=== PATIENT | male | born 1945 | race Two or more races ===

== ENCOUNTER 2017-11-03 17:23 | Emergency (ER) | payer MEDICARE ==
[~2017-11-03] VITALS: Ht 170.2 cm; Wt 78.5 kg
--- NOTE | 2017-11-03 17:44 | NUR ---
Patient is resting comfortably on gurney while reading the newspaper, LUIS MIGUEL, pending MD evaluation
[2017-11-03] MEDS ORDERED: LEVE500T9 PO (17:46)
[2017-11-03] MEDS ORDERED: RANI150T43 PO (17:46)
[2017-11-03] MEDS ORDERED: TICA90TA PO (17:46)
[2017-11-03] MEDS ORDERED: LOSA25TA13 PO (17:46)
[2017-11-03] MEDS ORDERED: METO-356 PO (17:46)
[2017-11-03] MEDS ORDERED: ASPI-618 PO (17:46)
[2017-11-03 18:41] LABS: BASOPHILS % (AUTO) 0.6 % (0.0-2.0); EOSINOPHILS # (AUTO) 0.1 K/uL (0.0-0.7); EOSINOPHILS % (AUTO) 2.1 % (0.0-7.0); HEMATOCRIT 36.8 % (36.7-47.1); HEMOGLOBIN 12.5 g/dL (12.5-16.3); LYMPHOCYTES # (AUTO) 1.3 K/uL (20.0-40.0); LYMPHOCYTES % (AUTO) 19.2 % (20.5-51.5); MEAN CORPUSCULAR HEMOGLOBIN 30.5 uug (23.8-33.4); MEAN CORPUSCULAR HGB CONC 34 g/dL (32.5-36.3); MEAN CORPUSCULAR VOLUME 90.3 fL (73.0-96.2); MONOCYTES # (AUTO) 0.8 K/uL (2.0-10.0); MONOCYTES % (AUTO) 11.3 % (0.0-11.0); NEUTROPHILS # (AUTO) 4.7 K/uL (1.8-8.9); NEUTROPHILS % (AUTO) 66.8 % (38.5-71.5); PLATELET COUNT (AUTO) 222 K/uL (152-348); RED BLOOD CELL COUNT(AUTO) 4.08 MIL/uL (4.06-5.63)
[2017-11-03 18:45] LABS: CARBON DIOXIDE 28 mmol/L (21-32); CHLORIDE 100 mmol/L (98-107); GLUCOSE 99 mg/dL (74-106); POTASSIUM 4.3 mmol/L (3.5-5.1); UREA NITROGEN, BLOOD 15 mg/dL (7-18)
[2017-11-03 18:50] LABS: ALANINE AMINOTRANSFERASE 28 U/L (16-63); ALKALINE PHOSPHATASE 271 U/L (50-136); ASPARTATE AMINOTRANSFERASE 22 U/L (15-37); BILIRUBIN,DIRECT 0.2 mg/dL (0.0-0.2); BILIRUBIN,TOTAL 0.8 mg/dL (0.2-1.0); TOTAL PROTEIN, SERUM 7.3 g/dL (6.4-8.2)
--- NOTE | 2017-11-03 19:19 | NUR ---
Assumed care of patient. patient in bed, no acute distress noted. family at bedside. Returned from CT.
--- NOTE | 2017-11-03 19:32 | NUR ---
Patient discharged to home in stable conditon. Written and verbal after care instructions given. Patient verbalizes understanding of instructions. Ambulated from ER with stable gait. patient is accompanied by , and will be driven home in private vehicle All belongings taken with patient.
[2017-11-03 19:35] VITALS: BP 131/74
== END 2017-11-03 19:40 | disposition home or self-care (01) ==
LOC: ER 17:26
DX: S42.202A Unspecified fracture of upper end of left humerus, initial encounter for closed fracture (principal); I10 Essential (primary) hypertension; Z95.0 Presence of cardiac pacemaker; Z79.82 Long term (current) use of aspirin; Z79.899 Other long term (current) drug therapy; X58.XXXA Exposure to other specified factors, initial encounter; Y93.89 Activity, other specified; Y92.89 Other specified places as the place of occurrence of the external cause; Y99.8 Other external cause status
CPT/HCPCS: 36415; 70030-TC; 71045; 73200; 85025; 85730; 93005; A4663

== ENCOUNTER 2023-01-14 21:33 | Emergency (ER) | payer MEDICARE ==
[~2023-01-14] VITALS: Ht 167.6 cm; Wt 79.4 kg
[~2023-01-14 21:33] MED LIST: ASPI-618 PO; LEVE500T9 PO; LOSA25TA27 PO; METO-356 PO; RANI-655 PO; TICA90TA PO
[2023-01-14] MEDS ORDERED: PROPOFOL 0 ML ONE (21:52)
--- NOTE | 2023-01-14 23:05 | NUR ---
PT AMB TO RM 4A WITH AT BEDSIDE.
[2023-01-15] MEDS ORDERED: VANCOMYCIN IV 1,000 MG in IV DEXTROSE 5% 250 ML IV ONE (00:15)
[2023-01-15] MEDS ORDERED: SULFAMETH/TRIMETH 800/160 MG TABLET PO ONE (00:15)
[2023-01-15] MEDS ORDERED: VANCOMYCIN IV 200 ML ONE (00:19)
[2023-01-15] MEDS ORDERED: SULFAMETH/TRIMETH 800/160 MG TABLET ONE (00:19)
--- NOTE | 2023-01-15 00:20 | NUR ---
AT BEDSIDE FOR EVAL.
[2023-01-15 00:36] LABS: HEMATOCRIT 38.7 % (36.7-47.1); MEAN CORPUSCULAR HEMOGLOBIN 30.5 uug (23.8-33.4); PLATELET COUNT (AUTO) 129 K/uL (152-348)
[2023-01-15 00:44] LABS: CARBON DIOXIDE 27 mmol/L (21-32); CHLORIDE 98 mmol/L (98-107); CREATININE 1.1 mg/dL (0.6-1.3); GLUCOSE 116 mg/dL (74-106); POTASSIUM 3.9 mmol/L (3.5-5.1); UREA NITROGEN, BLOOD 21 mg/dL (7-18)
--- NOTE | 2023-01-15 00:54 | NUR ---
ULTRA SOUND OF RAS L E'S DONE AT BEDSIDE.
[2023-01-15] MEDS ORDERED: SULF1TAB48 PO (01:10)
--- NOTE | 2023-01-15 02:50 | NUR ---
PT A,A AND O X 4 WITH L L E PAIN DECREASED TO 4/10,VSS AND NAD OBSERVED.PT'S IV D/C'D. SITE C/D/I. Patient discharged to home in stable condition. Written and verbal after care instructions given. Patient verbalizes understanding of instructions. Stressed follow up or return to ER for worsening s/s.PT AMB OUT WITH STEADY GAIT WITH .
[2023-01-15 03:07] VITALS: BP 126/67
== END 2023-01-15 03:00 | disposition home or self-care (01) ==
LOC: ER 21:35
DX: L03.116 Cellulitis of left lower limb (principal); I80.02 Phlebitis and thrombophlebitis of superficial vessels of left lower extremity; Z95.0 Presence of cardiac pacemaker; Z79.82 Long term (current) use of aspirin; Z79.899 Other long term (current) drug therapy
CPT/HCPCS: 99285; 96365; 93971; 96366; 80048; 85025; 85379; 87040 ×2; 36415; J3370; A4663; J3490